=== PATIENT | female | born 1960 | race Caucasian/White ===

== ENCOUNTER 2019-02-07 03:07 | Emergency (ER) | payer BC, OTHER ==
[2019-02-07] MEDS ORDERED: ACETAMINOPHEN EXTRA STRENGTH 500 MG TABLET ONE (04:32)
[2019-02-07] MEDS ORDERED: IBUPROFEN 600 MG TABLET ONE (06:20)
== END 2019-02-07 07:30 | disposition home or self-care (01) ==
LOC: EDH 03:07
DX: S00.03XA Contusion of scalp, initial encounter (principal); E11.9 Type 2 diabetes mellitus without complications; Z91.040 Latex allergy status; W18.39XA Other fall on same level, initial encounter; Y93.01 Activity, walking, marching and hiking; Y92.098 Other place in other non-institutional residence as the place of occurrence of the external cause; Y99.8 Other external cause status
CPT/HCPCS: 70450; 72125